=== PATIENT | male | born 1985 | race Caucasian/White ===

== ENCOUNTER 2025-07-26 20:51 | Day surgery (SDC) | payer OTHER, SELFPAY ==
[2025-07-26 12:46] VITALS: BP 129/93
[2025-07-26 13:36] LABS: Hematocrit 41.2 % (39.0-52.0); Hemoglobin 14.7 g/dL (13.0-18.0); Mean Corp Hgb Conc. 35.7 g/dL (33.0-37.0); Mean Corpuscular Volume 84.9 fL (80.0-94.0); Nucleated Red Blood Cells % 0 % (-); Platelet Count 285 10^3/uL (130-400); Red Cell Dist. Width 12.4 % (11.5-14.5)
[2025-07-26 14:09] LABS: ALT (SGPT) 30 U/L (0-50); AST (SGOT) 26 U/L (17-59); Albumin 4.9 g/dl (3.5-5.0); Alkaline Phosphatase 60 U/L (38-126); Blood Urea Nitrogen 13 mg/dl (9-20); Calcium 10.1 mg/dl (8.4-10.2); Carbon Dioxide 24 mmol/L (22-30); Chloride 103 mmol/L (98-107); Glucose 113 mg/dl (70-99); Lipase 69 U/L (23-300); Potassium 4.1 mmol/L (3.5-5.1); Sodium 137 mmol/L (135-145); Total Protein 8.2 g/dl (6.3-8.2); eGFR > 60.00
--- NOTE | 2025-07-26 14:33 | ED.GENMED ---
History of Present Illness
<Efrain Fajardo PA-C - Last Filed: 07/26/25 18:20>
General
Chief Complaint: Abdominal Pain
Source: patient
Time Seen by Provider: 07/26/25 14:13
History of Present Illness
History of Present Illness:
40-year-old male with no significant past medical history presenting to the emergency department for evaluation of generalized abdominal pain this morning, pain has since graduated to being exclusively within the right lower quadrant, constant, dull
aching sensation, nonradiating. Patient did not take anything for symptoms prior to arrival. No history of similar. He has no documented medical history, does not take any medications regularly, no surgical history. Social history is
noncontributory.
Past History
<Efrain Fajardo PA-C - Last Filed: 07/26/25 18:20>
Past History
ED Past Medical History: None
ED Past Surgical History: None
Social History
Tobacco: Non-smoker
Alcohol: Occasional
Drug: None
Living: with family
Review of Systems
<Efrain Fajardo PA-C - Last Filed: 07/26/25 18:20>
Review of Systems
All Other Systems: ROS reviewed and negative except as documented in HPI and ROS
Phy Exam
<Efrain Fajardo PA-C - Last Filed: 07/26/25 18:20>
Physical Exam
Physical Exam:
GENERAL: Alert , in no apparent distress
EYE: clear conjunctiva b/l
HEAD: NCAT
ENT: o/p clr, mmm.
CARDIAC: Regular rate and rhythm .
LUNGS: Clear breath sounds bilaterally, no acute respiratory distress, no wheezes/rales/rhonchi
ABDOMEN: Soft, right lower quadrant pain on palpation, no r/g, no cvat, negative Villalpando sign, tenderness at McBurney's point
NEUROLOGICAL: Alert and oriented
SKIN: Warm and dry, skin intact.
MUSCULOSKELETAL: well perfused.
PSYCH: Normal and appropriate interaction.
Course
<Efrain Fajardo PA-C - Last Filed: 07/26/25 18:20>
Orders/Labs/Results
Orders:
Orders
07/26/25 13:05
Complete Blood Count/With Diff Urgent
Comprehensive Metabolic Panel Urgent
Lipase Urgent
07/26/25 14:15
CT Abd/pel W Iv And Oral Contr Urgent
Comment:
Reason For Exam: RLQ pain, wbc [id number]
Iohexol [Omnipaque] See Protocol PO NOW STA
07/26/25 14:28
MetroNIDAZOLE 500 MG/100 ML [Flagyl 500 mg] 100 ml IV NOW
07/26/25 14:43
Ciprofloxacin 400 mg/[id number] [Cipro 400 mg] 200 ml IV NOW
07/26/25 14:47
MetroNIDAZOLE 500 MG/100 ML [Flagyl 500 mg] 100 ml .ROUTE .STK-MED
07/26/25 14:59
Iohexol [Omnipaque] 50 ml .ROUTE .STK-MED ONE
Abnormal Lab Results
07/26/25
13:05
WBC 20.4 H 10^3/uL
(4.8-10.8)
Abs Immat Gran (auto) 0.1 H 10^3/uL
(0-0.05)
Absolute Neuts (auto) 16.4 H 10^3/uL
(1.4-6.5)
Absolute Monos (auto) 1.0 H 10^3/uL
(0.1-0.6)
Neutrophils % 80.6 H %
(42.2-75.2)
Lymphocytes % 13.6 L %
(20.5-51.1)
Glucose 113 H mg/dl
(70-99)
12/19/25 13:05
07/26/25 13:05
Vital Signs
Initial and Last Documented VS:
Initial Vital Signs
Temp Pulse Resp BP Pulse Ox
97.8 F 120 20 129/93 100
07/26/25 12:46 07/26/25 12:46 07/26/25 12:46 07/26/25 12:46 07/26/25 12:46
Last Documented Vital Signs
Temp Pulse Resp BP Pulse Ox
97.8 F 90 16 128/84 100
07/26/25 12:46 07/26/25 16:00 07/26/25 16:00 07/26/25 14:40 07/26/25 16:00
<Brittany Glaser MD - Last Filed: 07/26/25 14:39>
Orders/Labs/Results
Orders:
Orders
07/26/25 13:05
Complete Blood Count/With Diff Urgent
Comprehensive Metabolic Panel Urgent
Lipase Urgent
07/26/25 14:15
CT Abd/pel W Iv And Oral Contr Urgent
Comment:
Reason For Exam: RLQ pain, wbc [id number]
Iohexol [Omnipaque] See Protocol PO NOW STA
07/26/25 14:28
MetroNIDAZOLE 500 MG/100 ML [Flagyl 500 mg] 100 ml IV NOW
07/26/25 14:43
Ciprofloxacin 400 mg/[id number] [Cipro 400 mg] 200 ml IV NOW
07/26/25 14:47
MetroNIDAZOLE 500 MG/100 ML [Flagyl 500 mg] 100 ml .ROUTE .STK-MED
07/26/25 14:59
Iohexol [Omnipaque] 50 ml .ROUTE .STK-MED ONE
Abnormal Lab Results
07/26/25
13:05
WBC 20.4 H 10^3/uL
(4.8-10.8)
Abs Immat Gran (auto) 0.1 H 10^3/uL
(0-0.05)
Absolute Neuts (auto) 16.4 H 10^3/uL
(1.4-6.5)
Absolute Monos (auto) 1.0 H 10^3/uL
(0.1-0.6)
Neutrophils % 80.6 H %
(42.2-75.2)
Lymphocytes % 13.6 L %
(20.5-51.1)
Glucose 113 H mg/dl
(70-99)
07/26/25 13:05
07/26/25 13:05
Vital Signs
Initial and Last Documented VS:
Initial Vital Signs
Temp Pulse Resp BP Pulse Ox
97.8 F 120 20 129/93 100
07/26/25 12:46 07/26/25 12:46 07/26/25 12:46 07/26/25 12:46 07/26/25 12:46
Last Documented Vital Signs
Temp Pulse Resp BP Pulse Ox
97.8 F 90 16 128/84 100
07/26/25 12:46 07/26/25 16:00 07/26/25 16:00 07/26/25 14:40 07/26/25 16:00
<Efrain Fajardo PA-C - Last Filed: 07/26/25 18:20>
MDM/Problems Addressed
Differential Diagnosis Includes:
Appendicitis
Divcerticulitis
Colitis
Renal/Ureteral Colic
UTI
MDM/Problems Addressed:
40-year-old male presenting to the ER for evaluation of right lower quadrant abdominal pain. Labs were initiated on arrival which show a 20,000 leukocytosis. Based off these history of generalized abdominal pain with pain localizing to the right
lower quadrant and the leukocytosis I do have clinical suspicion for acute appendicitis. CT ordered. Patient advised to remain NPO.
<Efrain Fajardo PA-C - Last Filed: 07/26/25 18:20>
*Radiology
Radiology exam reviewed: radiology read reviewed
*Pulse Oximetry
SaO2: 100
Oxygen Mode of Delivery: Room air
Patient hypoxic: no
*Critical Care Note
Total Time (30-74mins, 75-104mins- exclusive of procedures): Not Applicable
<Efrain Fajardo PA-C - Last Filed: 07/26/25 18:20>
Patient Management
Discussion with other providers: Hospitalist and Coding Quality Coordinator
Escalation/DeEscalation of care consider admission/obs:
Patient CT scan shows acute uncomplicated appendicitis. General surgery team was notified. House provider to place admit orders to the general surgery service. Patient remained stable.
ED Attending Note
<Efrain Fajardo PA-C - Last Filed: 07/26/25 18:20>
-
Portions of this chart may have been created with voice recognition software.� Occasional wrong word or��sound alike� substitutions may have occurred due to the inherent limitations of voice recognition software.
<Brittany Glaser MD - Last Filed: 07/26/25 14:39>
ED Attending Note
Patient seen and examined by attending physician: Yes
I performed the substantive portion of visit, reviewed & personally made and approve the management plan that is documented in note by myself or ELIDA.: Yes
ED Attending Note:
I have seen and evaluated the patient with a [id number] encounter. I have spoken to the [ELIDA] and involved in the medical history, the physical exam, medical decision making.
Evaluation and management service: agree unless noted differently below.
Results interpretation: agree unless noted differently below.
40-year-old who is otherwise healthy presenting to the emergency department with abdominal pain that started last night. It is down to the right lower quadrant. No nausea no vomiting. No testicular swelling. This never happened to him before.
No prior surgeries. On my evaluation patient is resting comfortably. He does have tenderness to the right lower quadrant. No rebound or guarding. Concern for appendicitis. Will pain control. CT scan. Blood work is notable for leukocytosis.
Will antibiosis. Anticipate admission.
Discharge Plan
Departure
Patient Disposition: Admit
Date of Disposition: 07/26/25
Time of Disposition: 18:00
Presentation/result/management discussed w/ accepting MD/DO: Dr. Huddleston
Discharge Problem:
Acute appendicitis
Prescriptions:
No Action
ibuprofen 200 mg Tablet
400 mg PO Q6H PRN (Reason: mild pain)
Referrals:
UNKNOWN - PT DOES,NOT KNOW [Family Provider]
Interventions
Interventions:
*General Assessment Last Done: 07/26/25 12:48
*Neglect/Abuse Screening Last Done: 07/26/25 12:48
*ED COVID-19 Vaccine History Last Done: 07/26/25 12:48
*ED Influenza Vaccine History Last Done: 07/26/25 12:48
[facility] Fall Risk Assessment Tool Last Done: 07/26/25 15:18
*Risk Screen - Suicide (C-SSRS) Last Done: 07/26/25 12:48
HW-Zfitui-Mvrgvzzlgp Assessment Last Done: 07/26/25 15:16
Discharge Date and Time
Print Language: SPANISH
[2025-07-26 14:40] VITALS: BP 128/84
[2025-07-26] MEDS: OMNIPAQUE 50 ML PO (14:50)
[2025-07-26] MEDS: FLAGYL 500 MG 100 IV (14:52)
[2025-07-26] MEDS: CIPRO 400 MG 200 IV (15:10)
[2025-07-26 20:18] VITALS: BP 117/80
[2025-07-26] MEDS: TYLENOL 650 MG PO (20:18)
--- NOTE | 2025-07-26 20:38 | HP.FOC2 ---
Addendum entered and electronically signed by Jameson Huddleston MD 07/27/25 08:56:
Agree with documented H&P from admitting nurse practitioner. Patient seen and examined independently this a.m.
HPI: 40-year-old otherwise healthy male with no significant past abdominal surgical history or past medical history who developed acute onset of abdominal pain yesterday that has increased in severity and localized to the right lower quadrant.
Associated anorexia but no vomiting. No similar episodes in the past.
AFVSS
NAD AAO x 3
ABD: Soft, nondistended, tenderness to palpation localized in the right lower quadrant with voluntary guarding
CT imaging personally reviewed and interpreted as well as radiologist report. Acutely inflamed and distended appendix, fluid-filled. No localizing fluid collections or ascites. Findings consistent with acute appendicitis.
Assessment: 40-year-old male with acute appendicitis.
Reviewed with patient history, examination and CT imaging consistent with acute appendicitis. Discussed both operative and nonoperative management options and associated risks/benefits of approaches. Patient is in agreement to proceed with
appendectomy.
Laparoscopic appendectomy reviewed in detail with the patient. Discussed operative technique utilizing diagrams or drawings, alternative management options, benefits and potential risks such as but not limited to bleeding, infectious or wound
healing complications, iatrogenic injury to surrounding viscera. Discussed the typical postoperative recovery pending operative findings.
Any of the patient's concerns or questions were fully addressed and informed consent was obtained.
Plan: OR for laparoscopic appendectomy.
Empiric antibiotic coverage with Cipro Flagyl.
Nothing by mouth, IV fluid hydration and supportive care awaiting operative room availability.
SCDs for DVT prophylaxis
Original Note:
Focused History & Physical
Chief Complaint
HPI:
Chief Complaint: abdominal pain
HPI / Indication for Planned Procedure:
40 YOM with no significant past medical history presented to the emergency dept for right lower quadrant pain that started this AM as generalized. Reports pain as dull and achy. Pt denies taking any pain medications at home and has not taken
anything for pain medicine in the ED. At this time patient's primary compaint in feeling feverish. Patient denies chest pain and SOB.
Relevant Past Medical History: Negative
Relevant Social History: Negative
Relevant Family History: Negative
Relevant Past Surgical History: Negative
Review of Systems
Review of Pertinent Systems: All Systems Negative
Medication
See Medication form for detailed medications: Yes
Medication List (including Herbals & OTC):
ibuprofen 200 mg tablet 400 mg PO Q6H PRN mild pain 07/26/25
Medications Reviewed: Yes
Allergies and Reactions
Patient has Allergies: Yes
Noted Allergies and Reactions:
Allergy/AdvReac Type Severity Reaction Status Date / Time
Penicillins Allergy Anaphylaxis Verified 07/26/25 12:49
shellfish derived Allergy Anaphylaxis Verified 07/26/25 12:49
Pertinent Physical Exam
All Other Systems: Negative
Head/Neck: Normal
Abdomen: Other (RLQ tender to palpation)
Extremities: Normal
Neurological: Normal
Diagnosis / Assessment
Acute appendicitis
Plan / Procedure
Admit under Dr. Huddleston [facility]
# Acute appendicitis
- NPO
- IVF - [id number]/hr
- ABX cipro and flagyl
- pain control
DVT prophylaxis - SCD
Full code
--- NOTE | 2025-07-26 21:00 | PTCARENOTE ---
Pt arrived to unit @ 2100 from ED [facility], able to make needs known, ambulated from chair to bed, VSS reports pain dull ache RLQ, oriented to room and hospital policies. Pt educated on NPO status for surgery in morning. Pt staying in room with pt
@ this time.
[2025-07-26 21:10] VITALS: BP 129/82; BMI 28.3
[2025-07-26] MEDS: NSS 1000 IV (21:24)
[2025-07-26 23:09] VITALS: BP 103/58
[2025-07-27] VITALS (7 sets, daily range): BP systolic 106–137; BP diastolic 64–83
[2025-07-27] MEDS: FLAGYL 500 MG 100 IV (02:00)
[2025-07-27] MEDS: CIPRO 400 MG 200 IV (04:36)
[2025-07-27 07:26] LABS: Hematocrit 36.9 % (39.0-52.0); Hemoglobin 12.9 g/dL (13.0-18.0); Mean Corp Hgb Conc. 35.0 g/dL (33.0-37.0); Mean Corpuscular Volume 86.2 fL (80.0-94.0); Platelet Count 219 10^3/uL (130-400); Red Cell Dist. Width 12.3 % (11.5-14.5)
[2025-07-27 07:34] LABS: Blood Urea Nitrogen 10 mg/dl (9-20); Calcium 9.2 mg/dl (8.4-10.2); Carbon Dioxide 26 mmol/L (22-30); Chloride 106 mmol/L (98-107); Estimated Creatinine Clearance 88 ml/min; Glucose 99 mg/dl (70-99); Potassium 4.1 mmol/L (3.5-5.1); Sodium 138 mmol/L (135-145); eGFR > 60.00
--- NOTE | 2025-07-27 08:56 | W.SUR.PREOP ---
Pre-Operative Surgical Note
-
I have examined this patient prior to the performance of the scheduled procedure.
The patient's condition is unchanged from the time of the current History and
Physical and the patient is able to undergo the scheduled procedure.
--- NOTE | 2025-07-27 09:56 | W.IMMPOSTOP ---
Addendum entered and electronically signed by Jameson Huddleston MD 07/27/25 10:05:
#[id number]
Original Note:
Surgical Immed Post Op Note
-
Primary Surgeon: Jameson Huddleston MD
Assisting Surgeon: None
Pre-op Diagnosis: Acute appendicitis
Post-op Diagnosis: Acute appendicitis
Procedure Performed: Laparoscopic appendectomy
Anesthesia Type: GETA +0.25% Marcaine with epi
Specimen / Cultures: Appendix/none
Estimated Blood Loss: 4 mL
Complications: None immediate
Operative Findings: Distended acutely inflamed appendix. No exudate, no purulence, no free fluid. Appendix divided flush with cecum utilizing Endo LENA 45 purple stapler. No disruption of appendix with appendectomy.
Plan: Advance diet as tolerated
DC when pain controlled, ambulating and tolerates p.o. challenge
No antibiotics necessary on discharge
[2025-07-27] MEDS: NSS 1000 IV (11:08)
== END 2025-07-27 18:00 | disposition home or self-care (01) ==
LOC: SDS 20:51
PROVIDERS: Emergency Medicine; Nurse Practitioner Gerontology; ATTENDING PHYSICIAN Surgery; EMERGENCY PHYSICIAN Student in an Organized Health Care Education/Training Program
PROC: 0DTJ4ZZ Resection of Appendix, Percutaneous Endoscopic Approach (ICD-10-PCS; 2025-07-27)
DX: K35.80 Unspecified acute appendicitis (principal); Z88.0 Allergy status to penicillin
CPT/HCPCS: 44970; 74177; 80048; 80053; 83690; 85025; 85027; 88304; 96374; 96375; 99284; Q9967